=== PATIENT | male | born 1980 | race Native Hawaiian/Other Pacific Islander ===

== ENCOUNTER 2022-05-26 06:23 | Emergency (ER) | payer OTHER ==
[~2022-05-26] VITALS: Ht 172.7 cm; Wt 104.3 kg
[2022-05-26 06:25] VITALS: BP 150/114
[2022-05-26 06:57] LABS: PLATELET COUNT 244 K/uL (142-355)
[2022-05-26 07:11] LABS: POTASSIUM 3.8 mmol/L (3.6-5.2)
== END 2022-05-26 08:12 | disposition home or self-care (01) ==
LOC: ED 06:23
PROVIDERS: Emergency Medicine Emergency Medical Services
DX: N13.2 Hydronephrosis with renal and ureteral calculous obstruction (principal)
CPT/HCPCS: 36415; 80053; 81000; 82150; 83690; 85027; 96361; 96374; 96375; 99284; J1885; J2405; Q9963